=== PATIENT | female | born 1955 | race Hispanic/Latino ===

== ENCOUNTER 2017-06-11 18:53 | Emergency (ER) | payer OTHER ==
[~2017-06-11] VITALS: Ht 154.9 cm; Wt 58.0 kg
[2017-06-11 19:29] LABS: HEMATOCRIT 40.3 % (36.0-46.0); HEMOGLOBIN 14.1 G/DL (11.9-15.5); MCH 32.1 PG (29.0-34.0); MCV 91.8 FL (83-99); PLATELET COUNT 282 K/uL (156-360); RBC DIS.WIDTH-CV 12.7 % (11.8-14.6); RBC DIS.WIDTH-SD 43.1 % (39-53); RED BLOOD COUNT 4.39 M/uL (3.80-5.20); WHITE BLOOD COUNT 9.5 K/uL (4.1-10.2)
[2017-06-11 19:41] LABS: ALBUMIN 4.3 g/dL (3.2-4.8)
[2017-06-11 19:42] LABS: CHLORIDE 108 mEq/L (99-109); POTASSIUM 3.6 mEq/L (3.7-5.4); SODIUM 139 mEq/L (136-147)
[2017-06-11 19:44] LABS: GLUCOSE 139 mg/dL (70-99); TOTAL PROTEIN 7.5 g/dL (6.4-8.3)
[2017-06-11 19:46] LABS: TOTAL BILIRUBIN 0.4 mg/dL (0.0-1.0)
[2017-06-11 19:47] LABS: ALKALINE PHOSPHATASE 116 IU/L (3-129)
[2017-06-11 19:48] LABS: CREATININE 0.8 mg/dL (0.6-1.3); GFR ESTIMATE (CALCULATED) > 59 mL/min/
[2017-06-11 19:49] LABS: AST (GOT) 27 IU/L (2-34); UREA NITROGEN (BUN) 19 mg/dL (9-23)
[2017-06-11 19:51] LABS: ALT (GPT) 14 IU/L (3-49); LIPASE 20 U/L (1.0-51.0)
[2017-06-12 00:01] LABS: APPEARANCE SL.HAZY ((CLEAR)); BILIRUBIN NEGATIVE; BLOOD NEGATIVE; COLOR YELLOW ((YELLOW)); GLUCOSE (STRIP) 50; KETONES NEGATIVE; LEUKOCYTES NEGATIVE; NITRITE NEGATIVE; PROTEIN (STRIP) NEGATIVE; SPECIFIC GRAVITY 1.025 (1.000-1.030); UROBILINOGEN 0.2 MG/DL (0.2-1.0)
[2017-06-12 00:10] LABS: BACTERIA NONE SEEN /HPF; EPITHELIAL CELLS RARE /HPF; MUCUS TRACE /LPF; RED BLOOD CELLS 0-5 /HPF (0-5); UCUL ADDED? NO; WHITE BLOOD CELLS 0-5 /HPF (0-5)
[2017-06-12] MEDS ORDERED: ZOFRAN4 MG PO (00:14)
[2017-06-12 00:25] VITALS: BP 103/55
== END 2017-06-12 01:03 | disposition home or self-care (01) ==
LOC: EME 18:53
DX: R10.11 Right upper quadrant pain (principal); R11.2 Nausea with vomiting, unspecified
CPT/HCPCS: 76705; 80053; 81003; 83690; 85027; 99281; 99284; J2270; J2405; J7030